=== PATIENT | female | born 1970 | race Hispanic/Latino ===

== ENCOUNTER 2018-12-21 15:32 | Emergency (ER) | payer OTHER ==
[2018-12-21] MEDS ORDERED: DEXAMETHASONE SOD PHOSPHATE 10MG/ML 1ML VIAL ONE (15:57)
[2018-12-21] MEDS ORDERED: IPRATROPIUM/ALBUTEROL SULFATE 3 ML SOLUTION IH ONE (16:00)
== END 2018-12-21 17:15 | disposition home or self-care (01) ==
LOC: EDH 15:32
DX: J20.9 Acute bronchitis, unspecified (principal); E11.9 Type 2 diabetes mellitus without complications; Z90.710 Acquired absence of both cervix and uterus; Z98.890 Other specified postprocedural states
CPT/HCPCS: 71046; 94640; 96372; 99284; J1100

== ENCOUNTER 2020-10-25 15:52 | Inpatient (IN) | payer BC, OTHER ==
[~2020-10-25] VITALS: Ht 154.9 cm; Wt 132.0 kg
[2020-10-25] MEDS ORDERED: IOHEXOL-350 75 ML VIAL IV ONE (16:36)
[2020-10-25 16:38] LABS: APPEARANCE,URINE Clear (CLEAR); BILIRUBIN,URINE Negative (NEGATIVE); COLOR,URINE Yellow (YELLOW); GLUCOSE, URINE (UA) 500 mg/dL (NEGATIVE); KETONES,URINE Negative (NEGATIVE); LEUKOCYTE ESTERASE ,URINE Small (NEGATIVE); NITRATE,URINE Negative (NEGATIVE); OCCULT BLOOD,URINE Small (NEGATIVE); PROTEIN,URINE Negative (NEGATIVE)
[2020-10-25 16:41] LABS: HCG,QUAL RESULT NEGATIVE (NEGATIVE)
[2020-10-25 16:44] LABS: BACTERIA,URINE Few /HPF (None Seen); SQUAMOUS EPITHELIAL CELL,UR Few /HPF (0-2)
[2020-10-25] MEDS ORDERED: ZOSYN 3.375GM+NS 50ML 50 ML IV ONE (16:54)
[2020-10-25] MEDS ORDERED: ACETAMINOPHEN 325 MG TAB ONE (16:54)
[2020-10-25 16:55] LABS: BASOPHILS % (AUTO) 0.3 % (0.0-5.0); EOSINOPHILS % (AUTO) 0.9 % (0.0-8.0); HEMATOCRIT 39.1 % (36-48); LYMPHOCYTES % (AUTO) 15.8 % (21.0-51.0); MEAN CORPUSCULAR HEMOGLOBIN 29.8 pg (27.0-33.0); MEAN CORPUSCULAR HGB CONC 33.2 g/dL (32.0-36.0); MEAN CORPUSCULAR VOLUME 89.7 fL (79-99); MONOCYTES % (AUTO) 6.7 % (3.0-13.0); NEUTROPHILS % (AUTO) 75.8 % (40.0-77.0); PLATELET COUNT (AUTO) 366 K/uL (130-400); RED BLOOD CELL COUNT(AUTO) 4.36 MIL/uL (4.00-5.50); RED CELL DISTRIBUTION WIDTH 12.1 % (11.0-15.5); WHITE BLOOD COUNT (AUTO) 17.1 K/uL (4.8-10.8)
[2020-10-25 17:06] LABS: CREATININE 0.8 mg/dL (0.5-1.5); POTASSIUM 3.8 mmol/L (3.5-5.1)
[2020-10-25 17:13] LABS: ALBUMIN 2.9 g/dL (3.5-5.0); BILIRUBIN,TOTAL 0.5 mg/dL (0.2-1.0); TOTAL PROTEIN, SERUM 8.2 g/dL (6.0-8.3)
[2020-10-25] MEDS ORDERED: VANCOMYCIN PROTOCOL PER PHARMACY IV PRN (18:45)
[2020-10-25] MEDS ORDERED: ONDANSETRON 4MG INJ IV PRN (18:45)
[2020-10-25] MEDS ORDERED: VANCOMYCIN 1G/250ML KIT 250 ML IV SCH (18:45)
[2020-10-25] MEDS ORDERED: ACETAMINOPHEN 325 MG TAB PO PRN ×2 (18:45)
[2020-10-25] MEDS ORDERED: MORPHINE 2 MG SYG IV PRN (18:45)
[2020-10-25] MEDS ORDERED: FLUCONAZOLE 200 MG/NS 100 ML 100 ML IV SCH (18:45)
[2020-10-25] MEDS ORDERED: VANCOMYCIN 1G/250ML KIT 250 ML IV ONE (18:46)
[2020-10-25 19:20] LABS: CRP QUANTITATIVE 103.3 mg/L (0.00-9.0)
[2020-10-25 19:22] LABS: HEMOGLOBIN A1C 9.9 % (4.0-6.0)
[2020-10-25 21:27] VITALS: BP 126/46
[2020-10-25] MEDS ORDERED: LOSA25TA41 PO (21:58)
[2020-10-25] MEDS ORDERED: SITA1TAB6 PO (21:58)
[2020-10-25] MEDS ORDERED: GLIM4TAB36 PO (21:58)
[2020-10-25] MEDS ORDERED: ATOR10 PO (21:58)
[2020-10-25] MEDS: FAMOTIDINE 20MG VIAL IV SCH (22:35)
[2020-10-25] MEDS: MEROPENEM 500 MG VIAL IV SCH (22:35)
[2020-10-25] MEDS: 0.9%NACL 1000ML 1,000 ML IV SCH (22:35)
[2020-10-25] MEDS: INSULIN GLARGINE 100 UNITS/ML 10 ML VIAL SQ SCH (22:37)
[2020-10-25] MEDS ORDERED: FLUCONAZOLE 200 MG/NS 100 ML 100 ML ONE (23:03)
[2020-10-26] VITALS (26 sets, daily range): BP systolic 102–131; BP diastolic 50–80
[2020-10-26] MEDS: MEROPENEM 500 MG VIAL IV SCH ×4 (01:55→20:57)
[2020-10-26] MEDS: 0.9%NACL 1000ML 1,000 ML IV SCH ×4 (02:45→18:45)
[2020-10-26] MEDS: VANCOMYCIN 1G/250ML KIT 250 ML IV SCH ×2 (05:15→15:51)
[2020-10-26] MEDS: INSULIN HUMULIN R 100 UNIT/ML 3ML SQ SCH ×5 (06:42→20:54)
[2020-10-26] MEDS: FAMOTIDINE 20MG VIAL IV SCH ×2 (08:11→20:51)
[2020-10-26] MEDS ORDERED: LIDOCAINE PF 100MG/5ML (2%) SYRINGE 5ML ONE (10:17)
[2020-10-26] MEDS ORDERED: PROPOFOL 10 MG/ML 20ML VIAL IV ONE (10:17)
[2020-10-26] MEDS ORDERED: ROCURONIUM 10MG/1ML SYR 10 MG/ML ML ONE (10:17)
[2020-10-26] MEDS ORDERED: FENTANYL CITRATE PF 50 MCG/1 ML 2ML VIAL ONE (10:17)
[2020-10-26] MEDS ORDERED: SUCCINYLCHOLINE 200MG/10ML SYR ONE (10:17)
[2020-10-26] MEDS ORDERED: BUPIVACAINE/PF 0.5% 10ML VIAL ONE (11:16)
[2020-10-26] MEDS ORDERED: LIDOCAINE 1%-EPI 1:100,000 20 ML VIAL IJ ONE (11:16)
[2020-10-26] MEDS ORDERED: NEOSTIGMINE 5MG/5ML SYR IV ONE (12:01)
[2020-10-26] MEDS ORDERED: GLYCOPYRROLATE 1 MG/5 ML SYRINGE ONE (12:01)
[2020-10-26] MEDS: FLUCONAZOLE 200 MG/NS 100 ML 100 ML IV SCH (20:53)
[2020-10-26] MEDS: INSULIN GLARGINE 100 UNITS/ML 10 ML VIAL SQ SCH (20:57)
[2020-10-27] MEDS: 0.9%NACL 1000ML 1,000 ML IV SCH (02:45)
[2020-10-27 04:03] VITALS: BP 113/62
[2020-10-27 05:03] LABS: BASOPHILS % (AUTO) 0.5 % (0.0-5.0); EOSINOPHILS % (AUTO) 2.2 % (0.0-8.0); HEMATOCRIT 34.1 % (36-48); LYMPHOCYTES % (AUTO) 24.2 % (21.0-51.0); MEAN CORPUSCULAR HEMOGLOBIN 30.2 pg (27.0-33.0); MEAN CORPUSCULAR HGB CONC 33.4 g/dL (32.0-36.0); MEAN CORPUSCULAR VOLUME 90.5 fL (79-99); MONOCYTES % (AUTO) 8.1 % (3.0-13.0); NEUTROPHILS % (AUTO) 64.4 % (40.0-77.0); PLATELET COUNT (AUTO) 326 K/uL (130-400); RED BLOOD CELL COUNT(AUTO) 3.77 MIL/uL (4.00-5.50); RED CELL DISTRIBUTION WIDTH 12.2 % (11.0-15.5); WHITE BLOOD COUNT (AUTO) 10.3 K/uL (4.8-10.8)
[2020-10-27] MEDS: VANCOMYCIN 1G/250ML KIT 250 ML IV SCH ×3 (05:22→22:17)
[2020-10-27] MEDS: MEROPENEM 500 MG VIAL IV SCH ×3 (05:22→22:19)
[2020-10-27 05:27] LABS: CREATININE 0.7 mg/dL (0.5-1.5); CRP QUANTITATIVE 61.9 mg/L (0.00-9.0); POTASSIUM 3.4 mmol/L (3.5-5.1)
[2020-10-27] MEDS ORDERED: LIDOCAINE HCL-MPF 1% 2ML VIAL IV PRN (06:15)
[2020-10-27] MEDS ORDERED: POTASSIUM CHLORIDE 10% ELIXIR 20 MEQ/15 ML UDCUP PO PRN (06:15)
[2020-10-27] MEDS ORDERED: POTASSIUM CHLORIDE 10MEQ/100ML 100 ML IV PRN (06:15)
[2020-10-27] MEDS: INSULIN HUMULIN R 100 UNIT/ML 3ML SQ SCH ×4 (06:38→22:20)
[2020-10-27 08:17] VITALS: BP 107/57
[2020-10-27] MEDS: FAMOTIDINE 20MG VIAL IV SCH ×2 (10:26→22:17)
[2020-10-27] MEDS: ENOXAPARIN SODIUM 40 MG/0.4 ML SYRINGE SQ SCH (10:27)
[2020-10-27] MEDS: MORPHINE 4 MG SYG IV PRN (10:36)
[2020-10-27] MEDS: KCL 20 MEQ ERTAB PO PRN (10:37)
[2020-10-27 11:53] VITALS: BP 126/80
[2020-10-27 16:00] VITALS: BP 113/60
[2020-10-27] MEDS ORDERED: VANCOMYCIN PROTOCOL PER PHARMACY IV PRN (19:45)
[2020-10-27] MEDS: FLUCONAZOLE 200 MG/NS 100 ML 100 ML IV SCH (22:17)
[2020-10-27] MEDS: INSULIN GLARGINE 100 UNITS/ML 10 ML VIAL SQ SCH (22:18)
[2020-10-27 23:38] VITALS: BP 118/58
[2020-10-28] MEDS: VANCOMYCIN 1G/250ML KIT 250 ML IV SCH ×3 (04:00→20:32)
[2020-10-28 04:05] VITALS: BP 134/62
[2020-10-28 05:38] LABS: BASOPHILS % (AUTO) 0.4 % (0.0-5.0); EOSINOPHILS % (AUTO) 3.4 % (0.0-8.0); HEMATOCRIT 36.6 % (36-48); LYMPHOCYTES % (AUTO) 28.3 % (21.0-51.0); MEAN CORPUSCULAR HEMOGLOBIN 29.7 pg (27.0-33.0); MEAN CORPUSCULAR HGB CONC 33.1 g/dL (32.0-36.0); MEAN CORPUSCULAR VOLUME 89.7 fL (79-99); MONOCYTES % (AUTO) 8.1 % (3.0-13.0); NEUTROPHILS % (AUTO) 59.1 % (40.0-77.0); PLATELET COUNT (AUTO) 348 K/uL (130-400); RED BLOOD CELL COUNT(AUTO) 4.08 MIL/uL (4.00-5.50); WHITE BLOOD COUNT (AUTO) 9.5 K/uL (4.8-10.8)
[2020-10-28 05:45] LABS: CREATININE 0.6 mg/dL (0.5-1.5); CRP QUANTITATIVE 46.1 mg/L (0.00-9.0); POTASSIUM 3.6 mmol/L (3.5-5.1)
[2020-10-28] MEDS: INSULIN HUMULIN R 100 UNIT/ML 3ML SQ SCH ×4 (06:00→20:57)
[2020-10-28] MEDS: MEROPENEM 500 MG VIAL IV SCH ×3 (07:16→22:46)
[2020-10-28 09:22] VITALS: BP 132/74
[2020-10-28] MEDS: FAMOTIDINE 20MG VIAL IV SCH ×2 (10:54→20:32)
[2020-10-28] MEDS: ENOXAPARIN SODIUM 40 MG/0.4 ML SYRINGE SQ SCH (10:56)
[2020-10-28 12:12] VITALS: BP 116/71
[2020-10-28 18:52] VITALS: BP 121/61
[2020-10-28 20:00] VITALS: BP 134/66
[2020-10-28] MEDS: MORPHINE 4 MG SYG IV PRN (20:10)
[2020-10-28] MEDS: 0.9%NACL 1000ML 1,000 ML IV SCH (20:31)
[2020-10-28] MEDS: FLUCONAZOLE 200 MG/NS 100 ML 100 ML IV SCH (20:31)
[2020-10-28] MEDS: INSULIN GLARGINE 100 UNITS/ML 10 ML VIAL SQ SCH (20:47)
[2020-10-29] VITALS (7 sets, daily range): BP systolic 117–139; BP diastolic 65–74
[2020-10-29] MEDS: 0.9%NACL 1000ML 1,000 ML IV SCH (02:03)
[2020-10-29] MEDS: VANCOMYCIN 1G/250ML KIT 250 ML IV SCH ×3 (04:44→21:33)
[2020-10-29] MEDS ORDERED: ACETAMINOPHEN WITH CODEINE 1 TAB TAB ONE (04:47)
[2020-10-29 05:15] LABS: BASOPHILS % (AUTO) 0.8 % (0.0-5.0); EOSINOPHILS % (AUTO) 3.4 % (0.0-8.0); LYMPHOCYTES % (AUTO) 31.5 % (21.0-51.0); MEAN CORPUSCULAR HEMOGLOBIN 30.2 pg (27.0-33.0); MEAN CORPUSCULAR HGB CONC 33.4 g/dL (32.0-36.0); MEAN CORPUSCULAR VOLUME 90.2 fL (79-99); MONOCYTES % (AUTO) 7.6 % (3.0-13.0); NEUTROPHILS % (AUTO) 55.9 % (40.0-77.0); PLATELET COUNT (AUTO) 354 K/uL (130-400); RED BLOOD CELL COUNT(AUTO) 3.88 MIL/uL (4.00-5.50); RED CELL DISTRIBUTION WIDTH 12.1 % (11.0-15.5); WHITE BLOOD COUNT (AUTO) 9.3 K/uL (4.8-10.8)
[2020-10-29 05:21] LABS: CRP QUANTITATIVE 28.4 mg/L (0.00-9.0)
[2020-10-29 05:33] LABS: CREATININE 0.8 mg/dL (0.5-1.5); POTASSIUM 3.7 mmol/L (3.5-5.1)
[2020-10-29] MEDS: MEROPENEM 500 MG VIAL IV SCH (05:49)
[2020-10-29] MEDS: INSULIN HUMULIN R 100 UNIT/ML 3ML SQ SCH ×4 (05:50→21:47)
[2020-10-29] MEDS: DOCUSATE SODIUM 100 MG CAP PO SCH ×2 (11:14→21:00)
[2020-10-29] MEDS: FAMOTIDINE 20MG VIAL IV SCH ×2 (11:14→21:32)
[2020-10-29] MEDS: ENOXAPARIN SODIUM 40 MG/0.4 ML SYRINGE SQ SCH (11:15)
[2020-10-29] MEDS: MORPHINE 4 MG SYG IV PRN (18:42)
[2020-10-29] MEDS: ATORVASTATIN 20 MG TABLET PO SCH (21:32)
[2020-10-29] MEDS: INSULIN GLARGINE 100 UNITS/ML 10 ML VIAL SQ SCH (21:45)
[2020-10-29] MEDS: ACETAMINOPHEN WITH CODEINE 1 TAB TAB PO PRN (22:12)
[2020-10-30] VITALS (7 sets, daily range): BP systolic 111–148; BP diastolic 47–76
[2020-10-30] MEDS: VANCOMYCIN 1G/250ML KIT 250 ML IV SCH ×2 (04:05→12:20)
[2020-10-30] MEDS: INSULIN HUMULIN R 100 UNIT/ML 3ML SQ SCH ×4 (05:28→22:38)
[2020-10-30] MEDS: FAMOTIDINE 20MG VIAL IV SCH ×2 (09:26→21:00)
[2020-10-30] MEDS: ENOXAPARIN SODIUM 40 MG/0.4 ML SYRINGE SQ SCH (09:35)
[2020-10-30] MEDS: DOCUSATE SODIUM 100 MG CAP PO SCH ×2 (09:35→22:35)
[2020-10-30] MEDS: LOSARTAN 25 MG TABLET PO SCH (09:48)
[2020-10-30] MEDS: ACETAMINOPHEN WITH CODEINE 1 TAB TAB PO PRN (09:49)
[2020-10-30] MEDS: KCL 20 MEQ ERTAB PO PRN ×2 (13:58→14:43)
[2020-10-30] MEDS: VANCOMYCIN 1G 1.25 GM in 0.9% NACL 250ML 250 ML IV SCH (21:00)
[2020-10-30] MEDS ORDERED: COMPOUND IV REFRIGERATED 1 EACH IVSOLN MISC PRN (21:30)
[2020-10-30] MEDS: ATORVASTATIN 20 MG TABLET PO SCH (22:35)
[2020-10-30] MEDS: INSULIN GLARGINE 100 UNITS/ML 10 ML VIAL SQ SCH (22:36)
[2020-10-31 04:13] VITALS: BP 140/77
[2020-10-31] MEDS: VANCOMYCIN 1G 1.25 GM in 0.9% NACL 250ML 250 ML IV SCH ×3 (05:00→21:28)
[2020-10-31 05:29] LABS: HEMATOCRIT 37.4 % (36-48); MEAN CORPUSCULAR HEMOGLOBIN 29.8 pg (27.0-33.0); MEAN CORPUSCULAR HGB CONC 33.4 g/dL (32.0-36.0); MEAN CORPUSCULAR VOLUME 89.3 fL (79-99); RED BLOOD CELL COUNT(AUTO) 4.19 MIL/uL (4.00-5.50); RED CELL DISTRIBUTION WIDTH 12.1 % (11.0-15.5); WHITE BLOOD COUNT (AUTO) 9.5 K/uL (4.8-10.8)
[2020-10-31 05:51] LABS: ALBUMIN 2.7 g/dL (3.5-5.0); BILIRUBIN,TOTAL 0.3 mg/dL (0.2-1.0); CREATININE 0.7 mg/dL (0.5-1.5); CRP QUANTITATIVE 15.4 mg/L (0.00-9.0); POTASSIUM 4.1 mmol/L (3.5-5.1); TOTAL PROTEIN, SERUM 7.7 g/dL (6.0-8.3)
[2020-10-31] MEDS: INSULIN HUMULIN R 100 UNIT/ML 3ML SQ SCH ×6 (06:06→21:34)
[2020-10-31 07:00] VITALS: BP 142/72
[2020-10-31 11:30] VITALS: BP 157/79
[2020-10-31] MEDS: LOSARTAN 25 MG TABLET PO SCH (12:01)
[2020-10-31] MEDS: DOCUSATE SODIUM 100 MG CAP PO SCH ×2 (12:01→21:28)
[2020-10-31] MEDS: FAMOTIDINE 20MG VIAL IV SCH ×2 (12:01→21:28)
[2020-10-31] MEDS: ENOXAPARIN SODIUM 40 MG/0.4 ML SYRINGE SQ SCH (12:02)
[2020-10-31] MEDS: ACETAMINOPHEN WITH CODEINE 1 TAB TAB PO PRN (14:31)
[2020-10-31 15:45] VITALS: BP 130/80
[2020-10-31 20:00] VITALS: BP 117/66
[2020-10-31] MEDS: ATORVASTATIN 20 MG TABLET PO SCH (21:28)
[2020-10-31] MEDS: INSULIN GLARGINE 100 UNITS/ML 10 ML VIAL SQ SCH (21:29)
== END 2020-10-31 23:15 | DRG 746 ==
LOC: EDH 15:52 → EDHIP 18:45 → 3AH 20:20 → 3DH 10-28 06:03
PROVIDERS: ADMIT Internal Medicine; ATTEND Internal Medicine
PROC: 02HV33Z Insertion of Infusion Device into Superior Vena Cava, Percutaneous Approach (ICD-10-PCS; 2020-10-26)
PROC: 0U9M0ZZ Drainage of Vulva, Open Approach (ICD-10-PCS; principal; 2020-10-26 11:20)
DX: N76.4 Abscess of vulva (principal); E44.0 Moderate protein-calorie malnutrition; Z68.43 Body mass index [BMI] 50.0-59.9, adult; L02.215 Cutaneous abscess of perineum; L03.315 Cellulitis of perineum; B95.62 Methicillin resistant Staphylococcus aureus infection as the cause of diseases classified elsewhere; N76.89 Other specified inflammation of vagina and vulva; E11.9 Type 2 diabetes mellitus without complications; R53.81 Other malaise; I10 Essential (primary) hypertension; E66.01 Morbid (severe) obesity due to excess calories; E78.5 Hyperlipidemia, unspecified; Z20.822 Contact with and (suspected) exposure to COVID-19; Z79.84 Long term (current) use of oral hypoglycemic drugs; Z79.899 Other long term (current) drug therapy; Z90.710 Acquired absence of both cervix and uterus; Z90.49 Acquired absence of other specified parts of digestive tract; Z83.3 Family history of diabetes mellitus
CPT/HCPCS: 36415; 74177; 80048; 80053; 80202; 81001; 81025; 82948; 83036; 83605; 84145; 85025; 85027; 85651; 86140; 87040; 87070; 87076; 87077; 87088; 87186; 87205; 87426; C1894; G0378; J0330; J1450; J1650; J1815; J2001; J2185; J2270; J2543; J2704; J2710; J3010; J3370; J3490; J7030; J7050; Q9967; U0003

== ENCOUNTER → 2020-11-23 | Outpatient (CLI) | payer BC ==
[~2020-11-23] MED LIST: ATOR10 PO; GLIM4TAB36 PO; LIDOCAINE HCL 2% JELLY 5 ML TP ONE; LOSA25TA41 PO; SITA1TAB6 PO
== END | disposition home or self-care (01) ==
LOC: WHH 08:15
PROVIDERS: ATTEND Family Medicine
DX: T81.89XA Other complications of procedures, not elsewhere classified, initial encounter (principal); S31.502A Unspecified open wound of unspecified external genital organs, female, initial encounter; E11.628 Type 2 diabetes mellitus with other skin complications; I10 Essential (primary) hypertension; E78.5 Hyperlipidemia, unspecified; E66.01 Morbid (severe) obesity due to excess calories; Z90.710 Acquired absence of both cervix and uterus; Z90.49 Acquired absence of other specified parts of digestive tract; Z79.84 Long term (current) use of oral hypoglycemic drugs; Z79.899 Other long term (current) drug therapy; Z68.43 Body mass index [BMI] 50.0-59.9, adult; X58.XXXA Exposure to other specified factors, initial encounter; Y93.89 Activity, other specified; Y92.89 Other specified places as the place of occurrence of the external cause; Y99.8 Other external cause status; Y83.8 Other surgical procedures as the cause of abnormal reaction of the patient, or of later complication, without mention of misadventure at the time of the procedure; Y92.238 Other place in hospital as the place of occurrence of the external cause
CPT/HCPCS: 97605; 99214

== ENCOUNTER → 2020-11-30 | Outpatient (CLI) | payer BC ==
[~2020-11-30] MED LIST changes: +HONEY 1 APPL/ML TUBE TP ONE
== END | disposition home or self-care (01) ==
LOC: WHH 08:00
PROVIDERS: ATTEND Family Medicine
DX: T81.89XD Other complications of procedures, not elsewhere classified, subsequent encounter (principal); S31.502D Unspecified open wound of unspecified external genital organs, female, subsequent encounter; E11.628 Type 2 diabetes mellitus with other skin complications; I10 Essential (primary) hypertension; E78.5 Hyperlipidemia, unspecified; E66.01 Morbid (severe) obesity due to excess calories; Z90.710 Acquired absence of both cervix and uterus; Z90.49 Acquired absence of other specified parts of digestive tract; Z79.84 Long term (current) use of oral hypoglycemic drugs; Z79.899 Other long term (current) drug therapy; Z68.43 Body mass index [BMI] 50.0-59.9, adult; X58.XXXD Exposure to other specified factors, subsequent encounter; Y83.8 Other surgical procedures as the cause of abnormal reaction of the patient, or of later complication, without mention of misadventure at the time of the procedure
CPT/HCPCS: 99214; A4450

== ENCOUNTER → 2020-12-07 | Outpatient (CLI) | payer BC ==
[~2020-12-07] MED LIST changes: -HONEY 1 APPL/ML TUBE TP ONE; -LIDOCAINE HCL 2% JELLY 5 ML TP ONE
== END | disposition home or self-care (01) ==
LOC: WHH 08:41
PROVIDERS: ATTEND Family Medicine
DX: T81.89XD Other complications of procedures, not elsewhere classified, subsequent encounter (principal); E11.628 Type 2 diabetes mellitus with other skin complications; I10 Essential (primary) hypertension; E78.5 Hyperlipidemia, unspecified; E66.01 Morbid (severe) obesity due to excess calories; Z90.710 Acquired absence of both cervix and uterus; Z90.49 Acquired absence of other specified parts of digestive tract; Z79.84 Long term (current) use of oral hypoglycemic drugs; Z79.899 Other long term (current) drug therapy; Z68.43 Body mass index [BMI] 50.0-59.9, adult; X58.XXXD Exposure to other specified factors, subsequent encounter; Y83.8 Other surgical procedures as the cause of abnormal reaction of the patient, or of later complication, without mention of misadventure at the time of the procedure
CPT/HCPCS: 99214

== ENCOUNTER → 2023-10-21 | Outpatient (CLI) | payer OTHER | LOC: RAH 09:40 | PROVIDERS: ATTEND Physician Assistant | DX: Z13.6 Encounter for screening for cardiovascular disorders (principal) | CPT/HCPCS: 75571 ==

== ENCOUNTER → 2023-12-02 | Outpatient (CLI) | payer BC | END | disposition home or self-care (01) | LOC: RAH 13:22 | PROVIDERS: ATTEND Physician Assistant | DX: Z12.31 Encounter for screening mammogram for malignant neoplasm of breast (principal) | CPT/HCPCS: 77067 ==

== ENCOUNTER → 2024-09-02 | Outpatient (CLI) | payer BC ==
--- NOTE | 2024-09-03 10:24 | HMCIMG ---
Exam Type: MAMMO DX BILATERAL, US BREAST BILATERAL Clinical Information: MASTODYNIA Comparison: December 02, 2023 TECHNIQUE: Mammogram with CAD was performed with CC and MLO and ML projections. FINDINGS: Breast parenchyma is mostly fatty replaced. No dominant mass or suspicious microcalcification identified. There is no nipple retraction or skin thickening. Benign-appearing calcifications are seen. Bilateral breast ultrasound was performed and shows only bilateral benign-appearing axillary lymph nodes. No worrisome breast lesions seen either side. CAD shows no worrisome regions. IMPRESSION: 1. No mammographic or sonographic signs of malignancy.. 2. Routine follow-up recommended. BI-RADS: CATEGORY 1: NEGATIVE Note: A negative x-ray should not delay biopsy if a dominant or clinically suspicious mass is present, since 8-10% of cancers are not identified by mammography.
== END | disposition home or self-care (01) ==
LOC: RAH 14:09
PROVIDERS: ATTEND Family Medicine
DX: N64.4 Mastodynia (principal)
CPT/HCPCS: 77066